=== PATIENT | male | born 1945 | race Caucasian/White ===

== ENCOUNTER → 2017-01-08 | Outpatient (CLI) | payer MEDICARE ==
[~2017-01-08] MED LIST: ACIPHEX20 MG PO; AMLODIPINE BESY10 MG PO; AMLODIPINE BESYL5 MG PO; ASPIR-TRIN325 MG PO; ASPIRINEC; ASPIRINEC PO; BENICAR HCT 40-1 TA1 PO; BENTYL10 MG PO; CENTRUM240 ML; COZAAR; CRESTOR; CRESTOR PO; DULERA 200 MCG/13 GM; FAMOTIDINE PO; HYZAAR 100-25 T1 TA1 PO; HYZAAR 100-25 T1 TAB PO; KLOR-CON PO; LORTAB 10/500 T1 TAB; LUMIGAN2.5 ML; METOPROLOL TAR25 MG PO; NASONEX17 GM; NEXIUM PO; NORCO 10-325 TA1 TAB PO; NORVASC PO; NORVASC10 MG PO; OXYCODON HCL-AP1 TA2 PO; PEPCID40 MG PO; PERCOCET 10/3251 TAB PO; PHENERGAN PR; PHENERGAN SUPP25 MG PR; PLAVIX PO; PLENDIL; PRILOSEC; SINGULAIR; ST. JOSEPH ASP325 MG PO; TOPROL XL PO; ZOCOR80 MG PO; ZOFRAN ODT4 MG PO; ZYRTEC1 MG/1 ML PO; ZYRTEC10 M2 PO
--- NOTE | ~2017-01-08 | MR32 ---
[facility] A Service of [facility] & [facility] RADIOLOGY TEXT RESULTS PATIENT: FRED MEJIA LOCATION: [facility] : [birth year] UNIT #: [id number] AGE: [address]: Erik Eng MD SEX: M ORDER DR: [id number] [place] [id number] O MR#: [id number] Acc #: [id number] NAME: FRED MEJIA : 1945 SEX: M STUDY DATE/TIME: 01/08/2017 15:21 UNIT: [facility] ROOM: STUDY DESCRIPTION: MR Cervical Wo Contrast Attending Physician: Erik Eng M.D. Referring Physician: Erik Eng M.D. Ordering Physician: Erik Eng M.D. Primary Care Physician: Tavon Soriano M.D. MRI CENTER REPORT This report is preliminary unless electronic signature is present. EXAM Cervical spine MRI without. HISTORY Increasing neck pain. No known injury or surgery. Neck pain increasing for a year with limited range of motion and right upper extremity pain, worse in the past 1 month. No history of cancer. COMMENT MRI of the cervical spine performed without contrast using routine 1.5T wide-bore imaging technique. The comparison study is from 06/25/2013. There is redemonstration of 2-3 mm of anterolisthesis of C2 on C3 which is probably degenerative and unchanged. There is the interval development of marrow edema either side of the C4-5 intervertebral disc, probably type 1 marrow endplate degenerative change. The discs are desiccated in general with loss of disc height, most apparent at C4-5, to a lesser extent 5-6 and 3-4 levels. There is no Chiari-I malformation. The cervical cord is normal in size and there is no reproducible focus of cord signal abnormality. At C2-3, there is facet degenerative change moderate on the right, only mild on the left, and this accounts for the anterolisthesis of C2 and C3. There is no canal stenosis. There is moderate right foraminal narrowing. At C3-4, there is asymmetric moderate right-side facet arthritis. Mild left-side facet arthritis with concentric desiccated disc bulging and endplate spondylosis. There is uncovertebral osteophyte formation worse to the right, and fairly severe right, more moderate left-sided foraminal impingement. There is probably a more focal small htsachv-au-vvix paramedian extrusion extending caudad from the disc remaining contiguous with it. There is mild cord flattening and canal stenosis to the left of midline. [facility] A Service of [facility] RADIOLOGY TEXT RESULTS PATIENT: FRED MEJIA LOCATION: [facility] : 45 UNIT #: [id number] AGE: [address]: Erik Eng MD SEX: M ORDER DR: At C4-5, there is moderate to severe right, milder left-sided facet arthritis. Concentric desiccated disc osteophyte complex with flattening of the anterior thecal sac and very mild canal stenosis. There is bieo-ya-ddzegclm bilateral foraminal narrowing. At C5-6, moderate facet arthritis bilaterally worse to the right. Mild concentric desiccated disc osteophyte complex mild effacement of the thecal sac, gifs-vp-jyqjytyy bilateral foraminal narrowing. At C6-7, bilateral facet degenerative change, moderate right, mild left with no canal stenosis. Neie-xk-vonhibsh foraminal narrowing bilaterally. At C7-T1, no canal stenosis. Some facet degenerative change but no significant foraminal impingement. IMPRESSION Interval progression of cervical degenerative disease since 2012. I am concerned that there is a small acaesbu-zg-bmsl paramedian extrusion at the C3-4 level with mild left-sided cord flattening and canal stenosis. No reproducible focus of cord signal abnormality. Please refer to the eycnz-wi-ytjbz description of canal and foraminal compromise and correlate with the patient's symptoms. Patient's multilevel facet arthritis is significant and contributes to the foraminal compromise. Dictated by... Mckenna Dalton M.D. THIS IS AN ELECTRONICALLY VERIFIED REPORT Mckenna Dalton M.D. at 01/09/2017 5:17 PM JORGE LUIS/mnia TD: 01/09/2017 16:00 JOB #: [id number] MRI CENTER REPORT Page 1 of 1
== END | disposition home or self-care (01) ==
LOC: SMRI 10:15
DX: M54.2 Cervicalgia (principal); M79.621 Pain in right upper arm; M50.10 Cervical disc disorder with radiculopathy, unspecified cervical region; M47.812 Spondylosis without myelopathy or radiculopathy, cervical region
CPT/HCPCS: 72141

== ENCOUNTER → 2017-01-11 | Outpatient (CLI) | payer MEDICARE ==
--- NOTE | ~2017-01-11 | XA30 ---
[facility] A Service of [facility] & [facility] RADIOLOGY TEXT RESULTS PATIENT: FRED MEJIA LOCATION: [facility] : 45 UNIT #: [id number] AGE: [address]: Erik Eng MD SEX: M ORDER DR: [id number] [facility] [address] [place], [place] [address] [id number] O MR#: [id number] Acc #: [id number] NAME: FRED MEJIA : 1945 SEX: M STUDY DATE/TIME: 01/11/2017 13:28 UNIT: [facility] ROOM: STUDY DESCRIPTION: XA Arthrocentesis Major Joint Attending Physician: Erik Eng M.D. Ordering Physician: Erik Eng M.D. Primary Care Physician: Tavon Soriano M.D. MEDICAL IMAGING REPORT This report is preliminary unless electronic signature is present EXAM Right hip injection under fluoroscopy HISTORY Right hip pain. FINDINGS The patient describes his pain prior to procedure 03/11. The patient was placed in supine position. The right groin was prepped with Chlorhexidine solution and sterile drape applied. Skin was anesthetized with 1% Xylocaine and under fluoroscopy, a 22-gauge needle was inserted into the joint and confirmed with contrast injection. Total of 9 mL of lidocaine was utilized with 4 mL bupivacaine and 2 mL of Depo-Medrol. The needle was removed, hemostasis achieved. Post-procedure, the patient's pain level was 0. Total fluoroscopy time for the procedure was 0.3 minutes. Total exposure 14 mGy air kerma standard. A single spot radiograph was obtained. Dictated by... Miguel Angel Banuelos M.D. THIS IS AN ELECTRONICALLY VERIFIED REPORT Miguel Angel Banuelos M.D. at 01/14/2017 10:30 AM Leif TD: 01/11/2017 20:20 JOB #: [id number] MEDICAL IMAGING REPORT Page 1 of 1 COPY
== END | disposition home or self-care (01) ==
LOC: CIVR 13:07
PROC: 3E0U33Z Introduction of Anti-inflammatory into Joints, Percutaneous Approach (ICD-10-PCS; principal; 2017-01-11)
PROC: 3E0U3BZ Introduction of Anesthetic Agent into Joints, Percutaneous Approach (ICD-10-PCS; 2017-01-11)
DX: M25.551 Pain in right hip (principal)
CPT/HCPCS: 77002; J1030; Q9966